=== PATIENT | male | born 1960 ===

== ENCOUNTER 2021-06-27 17:33 | Emergency (ER) | payer SELFPAY ==
[2021-06-27 18:33] VITALS: BP 175/58; PULSE 74; TEMP 98.4; BMI 33.5
[2021-06-27] MEDS ORDERED: ONDANSETRON *ODT* 4 MG TABLET SL ONE (19:48)
[2021-06-27] MEDS ORDERED: ONDANSETRON 4 MG TABLET PO ONE (19:59)
[2021-06-29 11:07] LABS: SARS-CoV-2 NAA Detected (Not Detected)
== END 2021-06-27 21:07 | disposition home or self-care (01) ==
LOC: JER 17:33
DX: J06.9 Acute upper respiratory infection, unspecified (principal)
CPT/HCPCS: 99283-25; C9803; Q0162; U0003; U0005